=== PATIENT | female | born 1995 | race Two or more races ===

== ENCOUNTER → 2022-12-23 | Emergency (ER) | payer OTHER ==
[~2022-12-23] VITALS: Ht 157.5 cm; Wt 85.7 kg
[~2022-12-23] MED LIST: PRENA1 TRUE CO1 EACH
== END | disposition left against medical advice (07) ==
LOC: ER 16:16
DX: Z53.21 Procedure and treatment not carried out due to patient leaving prior to being seen by health care provider (principal)

== ENCOUNTER 2023-06-17 14:08 | Inpatient (IN) | payer OTHER ==
[~2023-06-17] VITALS: Ht 157.5 cm; Wt 90.7 kg
[2023-06-17] MEDS ORDERED: RINGERS SOLUTION,LACTATED 1,000 ML IV SCH (14:30)
[2023-06-17 15:35] LABS: PH,URINE 6.5 (5.0-8.0); URINE APPEARANCE Cloudy; URINE BILIRRUBIN Negative (NEGATIVE); URINE BLOOD Negative; URINE COLOR Yellow; URINE GLUCOSE Negative (NEGATIVE); URINE LEUKOCYTE Moderate; URINE NITRATE Negative; URINE PROTEIN Negative (NEGATIVE); URINE UROBILINOGEN 0.2 E.U./dl
[2023-06-17 15:37] LABS: URINE BACTERIA 5604.3 uL (0.0-1933); URINE EPITHELIAL CELLS 126.6 uL (0.0-38.8); URINE RBC 8.6 uL (0.0-20.8)
[2023-06-17 15:42] LABS: HEMATOCRIT 30.5 % (36.0-45.00); HEMOGLOBIN 9.9 g/dL (12.0-15.00); MEAN CELL VOLUME 84.8 fL (80.00-100.00); MEAN CORPUSCULAR HEMOGLOBIN 27.6 pg (27.00-32.0); MEAN CORPUSCULAR HGB CONC 32.5 g/dl (32.0-36.0); PLATELET COUNT 350 K/uL (150-450); RED BLOOD COUNT 3.59 M/uL (4.00-6.00); RED CELL DISTRIBUTION WIDTH 16.5 % (11.5-14.5)
[2023-06-17 16:04] LABS: INR 1.01; PARTIAL THROMBOPLASTIN TIME 27.1 SECONDS (22.0-34.0); PROTHROMBIN TIME 10.6 SECONDS (9.0-11.5)
[2023-06-17] MEDS ORDERED: OXYTOCIN 10 UNITS/ML VIAL ONE (17:15)
[2023-06-17] MEDS ORDERED: PROMETHAZINE HCL 25 MG/ML AMPUL IM SCH (18:09)
[2023-06-17] MEDS ORDERED: MEPERIDINE HCL/PF 50 MG/ML VIAL IM PRN (18:15)
[2023-06-17] MEDS ORDERED: OXYTOCIN 1,000 ML IV SCH (18:15)
[2023-06-17] MEDS ORDERED: OXYTOCIN 10 UNITS/ML VIAL IV ONE (18:30)
[2023-06-18] MEDS ORDERED: OxyCODONE HCL/APAP UD (PERCOCET) PO PRN (10:00)
[2023-06-19] MEDS ORDERED: DOCUSATE SODIUM 100MG CAP PO ONE (15:30)
[2023-06-20] MEDS ORDERED: OxyCODONE HCL/APAP UD (PERCOCET) PO STA (10:52)
== END 2023-06-20 12:35 | disposition home or self-care (01) | DRG 788 ==
LOC: LDR 14:08 → OB/GYN 19:13 → O/R 06-19 16:41 → OB/GYN 06-19 16:42
PROVIDERS: ADMIT Obstetrics & Gynecology Obstetrics; ATTEND Obstetrics & Gynecology Obstetrics
PROC: 4A1HXCZ Monitoring of Products of Conception, Cardiac Rate, External Approach (ICD-10-PCS; 2023-06-17)
PROC: 10D00Z1 Extraction of Products of Conception, Low, Open Approach (ICD-10-PCS; principal; 2023-06-18)
DX: O34.211 Maternal care for low transverse scar from previous cesarean delivery (principal); Z3A.38 38 weeks gestation of pregnancy; Z37.0 Single live birth; Z20.822 Contact with and (suspected) exposure to COVID-19